=== PATIENT | male | born 1975 | race Caucasian/White ===

== ENCOUNTER 2017-02-19 22:53 | Inpatient (IN) | payer MEDICAID ==
[~2017-02-19] VITALS: Ht 177.8 cm; Wt 224.1 kg
[2017-02-19 22:55] VITALS: BP_SYST 108
[2017-02-19] MEDS ORDERED: ASPIRIN 325 MG TABLET PO ONE (23:15)
[2017-02-19 23:37] LABS: BASOPHILS # (AUTO) 0.1 K/uL (0.0-0.2); EOSINOPHILS # (AUTO) 0.3 K/uL (0.0-0.4); HEMATOCRIT 38.5 % (36-54); HEMOGLOBIN 12.2 g/dL (14.0-18.0); LYMPHOCYTES # (AUTO) 3.2 K/uL (1.0-5.5); LYMPHOCYTES % (AUTO) 34.5 % (20.5-51.5); MEAN CORPUSCULAR HEMOGLOBIN 24 pg (27-31); MEAN CORPUSCULAR HGB CONC 32 % (32-36); MEAN CORPUSCULAR VOLUME 75 fL (79.0-98.0); MONOCYTES # (AUTO) 0.6 K/uL (0.0-1.0); MONOCYTES % (AUTO) 6.3 % (1.7-9.3); NEUTROPHILS # (AUTO) 5.1 K/uL (1.8-7.7); NEUTROPHILS % (AUTO) 55.2 % (40.0-70.0); PLATELET COUNT (AUTO) 198 K/uL (130-430); RED BLOOD CELL COUNT(AUTO) 5.14 MIL/uL (4.2-6.2); RED CELL DISTRIBUTION WIDTH 13.8 % (9.0-15.0); WHITE BLOOD COUNT (AUTO) 9.3 K/uL (4.8-10.8)
[2017-02-19 23:49] LABS: CALCIUM 9.1 mg/dL (8.4-11.0); CREATININE 0.74 mg/dL (0.55-1.30); POTASSIUM 3.6 mmol/L (3.5-5.1)
[2017-02-19 23:55] LABS: ALBUMIN 3.3 g/dL (3.4-4.8); TOTAL BILIRUBIN 0.3 mg/dL (0.0-1.0)
[2017-02-20] MEDS ORDERED: IPRATROPIUM/ALBUTEROL SULFATE 3 ML AMPUL.NEB INH ONE
[2017-02-20] MEDS ORDERED: NACL 0.9% 1,000 ML IV ONE
[2017-02-20] MEDS ORDERED: VANCOMYCIN HCL 1,000 MG in NS 250 ML IV ONE (00:45)
[2017-02-20] MEDS ORDERED: MORPHINE 4 MG/ML INJ. SYRINGE IVP ONE (00:45)
[2017-02-20] MEDS ORDERED: VANCOMYCIN HCL 1000 MG/VIAL IV ONE (01:03)
[2017-02-20 01:33] VITALS: BP_SYST 127
[2017-02-20] MEDS ORDERED: FURO-149 PO (01:41)
[2017-02-20] MEDS ORDERED: POTA8CAP10 PO (01:41)
[2017-02-20] MEDS ORDERED: FLU VACC QS 2017-18(36MOS+)/PF 0.5 ML/SYR SYRINGE I.M. PRN (02:15)
[2017-02-20 03:09] VITALS: BP_SYST 129
[2017-02-20] MEDS ORDERED: ACETAMINOPHEN 325 MG TABLET PO PRN (06:30)
[2017-02-20] MEDS ORDERED: ZOLPIDEM TARTRATE 5 MG TABLET PO PRN (06:30)
[2017-02-20] MEDS ORDERED: POTASSIUM CHLORIDE 10 MEQ TAB.PRT.SR PO PRN (06:30)
[2017-02-20] MEDS ORDERED: LORazepam 2 MG/ML VIAL IVP PRN (06:30)
[2017-02-20] MEDS ORDERED: MORPHINE 2 MG/ML INJ. SYRINGE IVP PRN ×2 (06:30)
[2017-02-20] MEDS ORDERED: ONDANSETRON HCL 4 MG/2 ML VIAL IVP PRN (06:30)
[2017-02-20] MEDS ORDERED: DOCUSATE SODIUM 100 MG CAPSULE PO PRN (06:30)
[2017-02-20] MEDS ORDERED: MAGNESIUM SULFATE 50 ML IV PRN (06:30)
[2017-02-20 07:45] VITALS: BP_SYST 148
[2017-02-20 08:23] LABS: THYROID STIMULATING HORMONE 2.94 uIu/mL (0.36-3.74)
[2017-02-20] MEDS: ENOXAPARIN SODIUM 40 MG/0.4 ML SYRINGE SUBCUT SCH (08:43)
[2017-02-20] MEDS: PANTOPRAZOLE SODIUM 40 MG TAB PO SCH (08:43)
[2017-02-20] MEDS: FUROSEMIDE 40 MG TABLET PO SCH (08:44)
[2017-02-20] MEDS: ASPIRIN 81 MG TAB.CHEW PO SCH (08:44)
[2017-02-20] MEDS ORDERED: NON-FORMULARY MEDICATION (Potassium Chloride 8 MEQ) PO SCH (09:00)
[2017-02-20 10:18] LABS: BARBITURATE, URINE NEGATIVE (NEG <=200); BENZODIAZEPINE, URINE NEGATIVE (NEG <=150); CANNABINOID, URINE POSITIVE (NEG <=50); COCAINE, URINE NEGATIVE (NEG <=150); METHAMPHETAMINES SCREEN,URINE NEGATIVE (NEG <=500); OPIATE, URINE NEGATIVE (NEG <=100); PHENCYCLIDINE SCREEN,URINE NEGATIVE (NEG <=25); UR TRICYCLIC ANTIDEPRESSANTS NEGATIVE (NEG <=300); URINE AMPHETAMINE NEGATIVE (NEG <=500); URINE METHADONE NEGATIVE (NEG <=200); URINE OXYCODONE SCREEN NEGATIVE (NEG <=100); URINE PROPOXYPHENE SCREEN NEGATIVE (NEG <=300)
[2017-02-20 11:30] VITALS: BP_SYST 140
[2017-02-20 15:35] VITALS: BP_SYST 138
[2017-02-20 20:00] VITALS: BP_SYST 137
[2017-02-20] MEDS: MORPHINE 2 MG/ML INJ. SYRINGE IVP PRN (23:49)
[2017-02-21 00:57] VITALS: BP_SYST 139
[2017-02-21 04:33] VITALS: BP_SYST 151
[2017-02-21 06:06] LABS: CALCIUM 8.8 mg/dL (8.4-11.0); CREATININE 0.76 mg/dL (0.55-1.30); POTASSIUM 3.9 mmol/L (3.5-5.1)
[2017-02-21 06:13] LABS: BASOPHILS % (AUTO) 0.2 % (0.0-2.0); EOSINOPHILS # (AUTO) 0.2 K/uL (0.0-0.4); EOSINOPHILS % (AUTO) 2.8 % (0.0-4.0); HEMATOCRIT 39.1 % (36-54); HEMOGLOBIN 12.6 g/dL (14.0-18.0); LYMPHOCYTES # (AUTO) 2.3 K/uL (1.0-5.5); LYMPHOCYTES % (AUTO) 27.6 % (20.5-51.5); MEAN CORPUSCULAR HEMOGLOBIN 24 pg (27-31); MEAN CORPUSCULAR HGB CONC 32 % (32-36); MEAN CORPUSCULAR VOLUME 75 fL (79.0-98.0); MONOCYTES # (AUTO) 0.6 K/uL (0.0-1.0); NEUTROPHILS # (AUTO) 5.2 K/uL (1.8-7.7); NEUTROPHILS % (AUTO) 62.4 % (40.0-70.0); PLATELET COUNT (AUTO) 180 K/uL (130-430); RED BLOOD CELL COUNT(AUTO) 5.21 MIL/uL (4.2-6.2); WHITE BLOOD COUNT (AUTO) 8.3 K/uL (4.8-10.8)
[2017-02-21 08:25] VITALS: BP_SYST 141
[2017-02-21] MEDS: ENOXAPARIN SODIUM 40 MG/0.4 ML SYRINGE SUBCUT SCH (08:26)
[2017-02-21] MEDS: FUROSEMIDE 40 MG TABLET PO SCH (08:27)
[2017-02-21] MEDS: ASPIRIN 81 MG TAB.CHEW PO SCH (08:27)
[2017-02-21] MEDS: PANTOPRAZOLE SODIUM 40 MG TAB PO SCH (08:27)
[2017-02-21] MEDS: MORPHINE 2 MG/ML INJ. SYRINGE IVP PRN (08:31)
[2017-02-21] MEDS ORDERED: CELE200C PO (08:57)
[2017-02-21] MEDS ORDERED: POTASSIUM CHLORIDE 8 MEQ TABLET.SA PO SCH (09:00)
[2017-02-21 09:12] VITALS: BP_SYST 141
== END 2017-02-21 10:30 | disposition home or self-care (01) | DRG 203 ==
LOC: SED 22:53 → STU 02-20 00:53
PROVIDERS: ADMIT General Practice; ATTEND General Practice
DX: M94.0 Chondrocostal junction syndrome [Tietze] (principal); E44.0 Moderate protein-calorie malnutrition; E66.01 Morbid (severe) obesity due to excess calories; K21.9 Gastro-esophageal reflux disease without esophagitis; F12.90 Cannabis use, unspecified, uncomplicated; I51.7 Cardiomegaly; F32.9 Major depressive disorder, single episode, unspecified; Z82.49 Family history of ischemic heart disease and other diseases of the circulatory system; Z71.3 Dietary counseling and surveillance; Z68.45 Body mass index [BMI] 70 or greater, adult
CPT/HCPCS: 36415; 71010; 80048; 80053; 80307; 83735-TC; 83880; 84443-TC; 84484; 85025; 85379; 87040-TC; 93005; 93306; 94640; 96365; 96366; 96375; 99285; J1650; J2270; J3370; J7030; J7050; Q2037